=== PATIENT | female | born 1995 | race Caucasian/White ===

== ENCOUNTER 2023-03-08 09:41 | Emergency (ER) | payer OTHER ==
[2023-03-08 10:00] VITALS: RESP 18; BMI 25.6
[2023-03-08] MEDS ORDERED: SODIUM CHLORIDE 0.9% 1000 ML INFUS.BAG IV ONE (10:44)
[2023-03-08 10:51] LABS: HCG,QUALITATIVE URINE Negative
[2023-03-08 11:08] LABS: HEMATOCRIT 37.7 % (32.4-45.2); HEMOGLOBIN 12.2 G/dL (10.7-15.3); MCH 27.8 pg (25.7-33.7); MCHC 32.4 g/dl (32.0-36.0); MEAN CELL VOLUME 85.9 fl (80-96); MEAN PLT VOLUME 11.2 fl (7.5-11.1); PLATELET COUNT 263.5 10^3/uL (134-434); RBC 4.39 10^6/uL (3.60-5.2); RDW 15.3 % (11.6-15.6); WHITE BLOOD COUNT 7.1 10^3/uL (4.0-10.8)
[2023-03-08 11:14] LABS: PLATELET ESTIMATE ADEQUATE
[2023-03-08 12:34] LABS: ALBUMIN 4.2 g/dl (3.4-5.0); BILIRUBIN,TOTAL 0.7 mg/dl (0.2-1); BLOOD UREA NITROGEN 12.1 mg/dl (7-18); CALCIUM 8.5 mg/dl (8.5-10.1); CREATININE 0.6 mg/dl (0.6-1.3); POTASSIUM 5.1 mmol/L (3.5-5.1); SGOT/AST 14.6 U/L (15-37); SGPT/ALT 18.1 U/L (7-52); TOT PROT 6.5 g/dl (6.4-8.2)
[2023-03-08 12:59] VITALS: BP 124/82; PULSE 84; TEMP 98.2
== END 2023-03-08 13:33 | disposition home or self-care (01) ==
LOC: FER 09:41
DX: R53.83 Other fatigue (principal); R11.0 Nausea
CPT/HCPCS: 0241U-QW; 36415; 80053; 81003; 84439; 84443; 84703; 85027; 86308; 87086; 99283-25

== ENCOUNTER 2023-04-11 08:03 | Emergency (ER) | payer OTHER ==
[2023-04-11 08:09] VITALS: BP 124/87; PULSE 86; RESP 18; TEMP 99; BMI 24.5
== END 2023-04-11 09:35 | disposition home or self-care (01) ==
LOC: FER 08:03
DX: R13.10 Dysphagia, unspecified (principal); R50.9 Fever, unspecified; J02.9 Acute pharyngitis, unspecified; M79.10 Myalgia, unspecified site; R53.83 Other fatigue; T78.3XXA Angioneurotic edema, initial encounter; K13.0 Diseases of lips; Z20.822 Contact with and (suspected) exposure to COVID-19
CPT/HCPCS: 0241U-QW; 81003; 81025; 99283-25

== ENCOUNTER 2023-09-14 08:33 | Emergency (ER) | payer OTHER ==
[2023-09-14 08:46] VITALS: BP 133/88; PULSE 94; RESP 18; TEMP 98.2; BMI 25.6
== END 2023-09-14 09:09 | disposition home or self-care (01) ==
LOC: FER 08:33
DX: R09.81 Nasal congestion (principal); R05.9 Cough, unspecified; Z20.822 Contact with and (suspected) exposure to COVID-19
CPT/HCPCS: 0241U-QW; 99283-25

== ENCOUNTER 2024-03-25 19:30 | Emergency (ER) | payer OTHER ==
[2024-03-25 19:39] VITALS: BMI 26.5
[2024-03-25] MEDS ORDERED: IBUPROFEN 600 MG TABLET (FP) PO ONE (19:45)
[2024-03-25] MEDS: IBUPROFEN 600 MG TABLET (FP) PO ONE (19:50)
[2024-03-26 02:27] VITALS: BP 127/83; PULSE 92; RESP 18; TEMP 98.9
== END 2024-03-25 20:41 | disposition home or self-care (01) ==
LOC: FER 19:30
DX: R50.9 Fever, unspecified (principal); R68.83 Chills (without fever); R51.9 Headache, unspecified; M79.10 Myalgia, unspecified site; J02.9 Acute pharyngitis, unspecified; R05.9 Cough, unspecified; J06.9 Acute upper respiratory infection, unspecified; Z20.822 Contact with and (suspected) exposure to COVID-19
CPT/HCPCS: 0241U-QW; 99283-25